=== PATIENT | female | born 1975 | race Caucasian/White ===

== ENCOUNTER → 2017-11-21 08:55 | Outpatient (CLI) | payer OTHER, BC, SELFPAY ==
--- NOTE | 2017-11-21 08:59 | MM_ITS ---
MM Dig screening mamm BI w/CAD CAD Screening COMPARISON: Digital mammograms 09/18/2016 and 02/24/2015 INDICATION: There is a history of breast cancer patient maternal grandmother. TECHNIQUE: Standard CC and MLO images were obtained. R2 CAD reviewed. FINDINGS: Moderate diffuse fibroglandular densities are seen throughout both breast and the findings are bilateral and symmetrical. There is no suspicious lesion and there are no suspicious microcalcifications. IMPRESSION: Stable exam no suspicious lesion seen recommend yearly follow-up BI-RADS Category: 1 Negative RECOMMENDED FOLLOW-UP: 1YR - 1 YEAR FOLLOW-UP (A letter has been sent to the patient regarding results of the study.)
[2017-11-21 11:03] LABS: Basophils # 0.1 K/mm3 (0-0.2); Basophils % 0.9 % (0.1-2.0); Eosinophils # 0.3 K/mm3 (0.0-0.4); Eosinophils % 3.6 % (0.1-12.0); Hematocrit 40.6 % (37.0-47.0); Hemoglobin 14.1 g/dL (12.2-16.2); Lymphocytes # 1.9 K/mm3 (0.7-4.5); Lymphocytes % 27.3 K/mm3 (10-50); Mean Corpuscular HGB Conc 34.7 g/dL (31.8-35.4); Mean Corpuscular Hemoglobin 30.7 pg (27.0-31.2); Mean Corpuscular Volume 88.5 fl (81-99); Mean Platelet Volume 8.5 fl (7.4-10.4); Monocytes # 0.3 K/mm3 (0.1-1.0); Monocytes % 4.1 % (1.7-9.3); Neutrophils # 4.6 K/mm3 (1.8-7.8); Neutrophils % 64.1 % (37.0-80.0); Platelet Count 186 K/mm3 (142-424); Red Blood Count 4.59 M/mm3 (4.20-5.40); Red Cell Distribution Width 12.9 % (11.5-17.5); White Blood Count 7.1 K/mm3 (4.8-10.8)
[2017-11-21 12:26] LABS: Alanine Aminotransferase 22 U/L (12-78); Albumin Level 3.9 gm/dL (3.4-5.0); Albumin/Globulin Ratio 1.3 (1.1-1.8); Alkaline Phosphatase 61 U/L (46-116); Anion Gap 13.5 mEq/L (5-15); Aspartate Amino Transferase 22 U/L (15-37); Bilirubin,Total 0.4 mg/dL (0.2-1.0); Blood Urea Nitrogen 13 mg/dL (7-18); Calcium 8.7 mg/dL (8.5-10.1); Carbon Dioxide 27 mmol/L (21.0-32.0); Chloride 105 mmol/L (98-107); Chol/HDL Ratio 6.1 (1-3.5); Cholesterol 176 mg/dL (140-200); Estimated Glomerular Filt Rate 92 ml/min (>60); GFR (African American) 111 ML/MIN (>60); Glucose 82 mg/dL (74-106); HDL Cholesterol 29 mg/dL (29-89); LDL Cholesterol 101 mg/dL (0-130); Potassium 4.5 mmoL/L (3.5-5.1); Sodium 141 mmol/L (136-145); Total Protein,Serum 6.9 gm/dL (6.4-8.2); Triglycerides 231 mg/dL (30-200); VLDL Cholesterol 46 mg/dL (0-40)
== END ==
PROVIDERS: PCP Internal Medicine Adolescent Medicine; Visit Provider Nurse Practitioner Obstetrics & Gynecology
DX: Z12.31 Encounter for screening mammogram for malignant neoplasm of breast (principal)
CPT/HCPCS: 36415; 77067; 80053; 80061; 82652; 85025

== ENCOUNTER → 2019-01-28 10:54 | Outpatient (CLI) | payer BC, SELFPAY ==
--- NOTE | 2019-01-28 10:56 | MM_ITS ---
MM Dig screening mamm BI w/CAD ORDERING PHYSICIAN : Dale Anderson MD PATIENT AGE: 43 years GENDER: Female COMPARISON: February INDICATION: : Routine Screening Mammogram no hormones no new complaints Family history: maternal great grandmother with breast cancer TECHNIQUE: Standard CC and MLO images were obtained. R2 CAD reviewed. Similar parenchymal pattern and distribution. No dominant or suspicious mass. No suspicious calcifications. Mild asymmetry FINDINGS: Mild to moderate fibroglandular elements most evident throughout the upper-outer quadrant bilateral RIGHT BREAST:No new areas of concern. Stable right mammogram LEFT BREAST:No new areas of significant concern. Mild asymmetry with small focal area of fibroglandular density at the medial breast has been seen on previous studies ...... IMPRESSION: ...... No new findings of significant concern. Adequately stable mammogram. Bilateral follow-up one year recommended and encouraged BI-RADS Category: 2 Benign Finding(s) RECOMMENDED FOLLOW-UP: 1YR 1 YEAR FOLLOW-UP (A letter has been sent to the patient regarding results of the study.)
== END ==
PROVIDERS: PCP Internal Medicine Adolescent Medicine; Visit Provider Nurse Practitioner Obstetrics & Gynecology
DX: Z12.31 Encounter for screening mammogram for malignant neoplasm of breast (principal)
CPT/HCPCS: 77067

== ENCOUNTER → 2021-07-22 08:35 | Outpatient (CLI) | payer OTHER, SELFPAY | PROVIDERS: PCP Internal Medicine Adolescent Medicine; Visit Provider Nurse Practitioner | DX: U07.1 COVID-19 (principal) | CPT/HCPCS: C9803; U0003; U0005 ==

== ENCOUNTER 2024-11-21 08:31 | Outpatient (CLI) | payer BC, SELFPAY ==
--- NOTE | 2024-11-21 08:30 | MM_ITS ---
PROCEDURE INFORMATION: Exam: MG Bilateral Screening 3D Mammography Exam date and time: 11/21/2024 8:41 AM Age: 49 years old Clinical indication: Screening examination. TECHNIQUE: Imaging protocol: Bilateral Screening tomosynthesis and 2D mammography including computer-aided detection (CAD) when performed. COMPARISON: 1. MG DIG MAMM-SCREEN [facility] 01/28/2019 11:21 AM 2. MG SCBI MM Dig screening mamm BI w/CAD 11/21/2017 9:06 AM FINDINGS: MAMMOGRAPHY: Breast composition: There are scattered areas of fibroglandular density. Mass: None. Architectural distortion: None. Calcifications: No suspicious calcifications. Asymmetric density: None. Skin thickening: None. Axillary adenopathy: None. IMPRESSION: No mammographic evidence of malignancy. Annual screening is recommended unless otherwise clinically indicated. ASSESSMENT: BI-RADS Category 1: Negative.
--- OUTSIDE RECORDS SUMMARY | 2024-11-21 08:33 | XMS_ITS | Data Portability ---
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 Plan of Treatment Reminders Order Date Submit Date Provider Last Modified By Organization Details Last Modified Time Details Appointments None recorded. Lab bun (blood urea nitrogen), serum or plasma 2023 024 [facility] (Centralized Scheduling), [address] [place], [address], 4 16:14:40 creatinine , serum or plasma 2023 024 [facility] (Centralized Scheduling), [address] [place], [address], 4 16:14:40 hormone panel, serum or plasma 2022 023 [email or web address], [address], [address], [place], [address], 3 09:55:14 CBC w/ auto diff 2022 023 [email or web address] [facility], [address], [address], [place], [address], 3 09:55:14 CMP, serum or plasma 2022 023 [email or web address] [facility], [address], [address], [place], [address], 3 09:55:14 lipid panel, serum 2022 023 [place] [address] [facility], [address], [address], [place], [address], 3 09:55:14 unlisted lab - TSH reflex to t4f 2022 023 [place] [address] [facility], [address], [address], [place], [address], 3 09:55:14 Referral None recorded. Procedures None recorded. Surgeries None recorded. Imaging electrocar diogram 2023 024 [facility], [address], [place], [address], 4 13:57:15 MRI, brain, w/wo contrast 2023 024 [facility] (Centralized Scheduling), [address], [place], [address], 4 16:15:19 Medication Orders None recorded. Patient TargetsNo targets recorded. Patient Instructions Encounter Date Encounter Id Patient Instructions Last Modified By Organization Details Last Modified Time 04/16/2023 [id number] Will RTC for lab s to R/O anemia, diabetes, electrolyte disturbance, thyroid disease or perimenopause. If labs are all unremarkable, would consider referral to ENT for further eval with subsequent referal to Neuro if warranted due to persistent H/A's. [email or web address] Not available 04/16/2023 15:03:20 Reason for Referral None Reported. Results Created Date Observation Date Name Description Value Unit Range Abnormal Flag Note LastModifiedBy Organization Detail LastModifiedTime 04/20/20 23 04/21/2023 FSH+T ESTT+ LH+KY OG+ES TROGE N testosterone 39 NG/dL 4-50 Not Available [facility] ([facility]) [address] [place], [address], 04/25/2023 06:16:20 04/20/2004/21/2023 FSH+T ESTT+ LH+KY OG+ES TROGE N LH 23.9 mIU/m L Adult Femal e: Folli cular phase 2.4 - 12.6 Ovula tion phase 14.0 - 95.6 Lutea l phase 1.0 - 11.4 Postm enopa usal 7.7 - 58.5 Not Available [facility] ([facility]) [address] [place], [address], 04/25/2023 06:16:20 04/20/2004/21/2023 FSH+T ESTT+ LH+KY OG+ES TROGE N FSH 35.0 mIU/m L Adult Femal e: Folli cular phase 3.5 - 12.5 Ovula tion phase 4.7 - 21.5 Lutea l phase 1.7 - 7.7 Postm enopa usal 25.8 - 134.8 Not Available [facility] ([facility]) [address] [place], [address], 04/25/2023 06:16:20 04/20/2004/21/2023 FSH+T ESTT+ LH+KY OG+ES TROGE N progesterone 0.2 NG/mL Folli cular phase 0.1 - 0.9 Lutea l phase 1.8 - 23.9 Ovula tion phase 0.1 - 12.0 Pregn ant First trime ster 11.0 - 44.3 Secon d trime ster 25.4 - 83.3 Third trime ster 58.7 - 214.0 Postm enopa usal 0.0 - 0.1 Not Available [facility] ([facility]) [address] [place], [address], 04/25/2023 06:16:20 04/20/2004/25/2023 FSH+T ESTT+ LH+KY OG+ES TROGE N estrogens, total 57 pg/mL Prepu berhane l < 40 Femal e Cycle : 1-10 Days 16 - 328 11-20 Days 34 - 501 21-30 Days 48 - 350 Post- Menop ausal 40 - 244 Not Available [facility] ([facility]) [address] [facility], [place], [address], 04/25/2023 06:16:20 04/20/2004/21/2023 CBC WITH DIFFE RENTI AL/PL ATELE T WBC 6.7 x10e3 /uL 3.4-10 .8 Not Available [facility] ([facility]) [address] [place], [address], 04/25/2023 06:16:21 04/20/2004/21/2023 CBC WITH DIFFE RENTI AL/PL ATELE T RBC 4.69 x10e6 /uL 3.77-5 .28 Not Available [facility] ([facility]) [address] [facility], [place], [address], 04/25/2023 06:16:21 04/20/2004/21/2023 CBC WITH DIFFE RENTI AL/PL ATELE T hemoglobin 13.6 g/dL 11.1-1 5.9 Not Available [facility] ([facility]) [address] [place], [address], 04/25/2023 06:16:21 04/20/2004/21/2023 CBC WITH DIFFE RENTI AL/PL ATELE T hematocrit 41.6 % 34.0-4 6.6 Not Available [facility] ([facility]) [address] [place], [address], 04/25/2023 06:16:21 04/20/2004/21/2023 CBC WITH DIFFE RENTI AL/PL ATELE T MCV 89 fL 79-97 Not Available [facility] ([facility]) [address] [place], [address], 04/25/2023 06:16:21 04/20/2004/21/2023 CBC WITH DIFFE RENTI AL/PL ATELE T MCH 29.0 pg 26.6-3 3.0 Not Available [facility] ([facility]) [address] [facility], [place], [address], 04/25/2023 06:16:21 04/20/2004/21/2023 CBC WITH DIFFE RENTI AL/PL ATELE T MCHC 32.7 g/dL 31.5-3 5.7 Not Available [facility] ([facility]) [address] [facility], [place], [address], 04/25/2023 06:16:21 04/20/2004/21/2023 CBC WITH DIFFE RENTI AL/PL ATELE T RDW 12.8 % 11.7-1 5.4 Not Available [facility] ([facility]) [address] [facility], [place], [address], 04/25/2023 06:16:21 04/20/2004/21/2023 CBC WITH DIFFE RENTI AL/PL ATELE T platelets 221 x10e3 /uL 150-45 0 Not Available [facility] ([facility]) [address] [facility], [place], [address], 04/25/2023 06:16:21 04/20/2004/21/2023 CBC WITH DIFFE RENTI AL/PL ATELE T neutrophils 61 % not estab. Not Available [facility] ([facility]) [address] [facility], [place], [address], 04/25/2023 06:16:21 04/20/2004/21/2023 CBC WITH DIFFE RENTI AL/PL ATELE T lymphs 29 % not estab. Not Available [facility] ([facility]) [address] [place], [address], 04/25/2023 06:16:21 04/20/2004/21/2023 CBC WITH DIFFE RENTI AL/PL ATELE T monocytes 6 % not estab. Not Available [facility] ([facility]) [address] [facility], [place], [address], 04/25/2023 06:16:21 04/20/2004/21/2023 CBC WITH DIFFE RENTI AL/PL ATELE T eos 3 % not estab. Not Available [facility] ([facility]) [address] [facility], [place], [address], 04/25/2023 06:16:21 04/20/2004/21/2023 CBC WITH DIFFE RENTI AL/PL ATELE T basos 1 % not estab. Not Available [facility] ([facility]) [address] [facility], [place], [address], 04/25/2023 06:16:21 04/20/2004/21/2023 CBC WITH DIFFE RENTI AL/PL ATELE T immature cells LANGUAGE ASSISTANT Not Available [facility] ([facility]) [address] [place], [address], 04/25/2023 06:16:21 04/20/2004/21/2023 CBC WITH DIFFE RENTI AL/PL ATELE T neutrophils (absolute) 4.1 x10e3 /uL 1.4-7. 0 Not Available [facility] ([facility]) [address] [place], [address], 04/25/2023 06:16:21 04/20/2004/21/2023 CBC WITH DIFFE RENTI AL/PL ATELE T lymphs (absolute) 2.0 x10e3 /uL 0.7-3. 1 Not Available [facility] ([facility]) [address] [place], [address], 04/25/2023 06:16:21 04/20/2004/21/2023 CBC WITH DIFFE RENTI AL/PL ATELE T monocytes(ab solute) 0.4 x10e3 /uL 0.1-0. 9 Not Available [facility] ([facility]) [address] [facility], [place], [address], 04/25/2023 06:16:21 04/20/2004/21/2023 CBC WITH DIFFE RENTI AL/PL ATELE T eos (absolute) 0.2 x10e3 /uL 0.0-0. 4 Not Available [facility] ([facility]) [address] [facility], [place], [address], 04/25/2023 06:16:21 04/20/2004/21/2023 CBC WITH DIFFE RENTI AL/PL ATELE T baso (absolute) 0.1 x10e3 /uL 0.0-0. 2 Not Available [facility] ([facility]) [address] [facility], [place], [address], 04/25/2023 06:16:21 04/20/2004/21/2023 CBC WITH DIFFE RENTI AL/PL ATELE T immature granulocytes 0 % not estab. Not Available [facility] ([facility]) [address] [facility], [place], [address], 04/25/2023 06:16:21 04/20/2004/21/2023 CBC WITH DIFFE RENTI AL/PL ATELE T immature grans (abs) 0.0 x10e3 /uL 0.0-0. 1 Not Available [facility] ([facility]) [address] [facility], [place], [address], 04/25/2023 06:16:21 04/20/2004/21/2023 CBC WITH DIFFE RENTI AL/PL ATELE T NRBC LANGUAGE ASSISTANT Not Available [facility] ([facility]) [address] [facility], [place], [address], 04/25/2023 06:16:21 04/20/2004/21/2023 CBC WITH DIFFE RENTI AL/PL JORGE LUIS T hematology comments: LANGUAGE ASSISTANT Not Available [facility] ([facility]) [address] [facility], [place], [address], 04/25/2023 06:16:21 04/20/20 23 04/21/2023 COMP. METAB OLIC PANEL (14) glucose 82 mg/dL 70-99 Not Available [facility] ([facility]) [address] [place], [address], 04/25/2023 06:16:22 04/20/20 23 04/21/2023 COMP. METAB OLIC PANEL (14) BUN 13 mg/dL 6-24 Not Available [facility] ([facility]) [address] [place], [address], 04/25/2023 06:16:22 04/20/20 23 04/21/2023 COMP. METAB OLIC PANEL (14) creatinine 0.80 mg/dL 0.57-1 .00 Not Available [facility] ([facility]) [address] [place], [address], 04/25/2023 06:16:22 04/20/20 23 04/21/2023 COMP. METAB OLIC PANEL (14) eGFR 91 mL/mi n/1.7 3 >59 Not Available [facility] ([facility]) [address] [place], [address], 04/25/2023 06:16:22 04/20/20 23 04/21/2023 COMP. METAB OLIC PANEL (14) BUN/creatini ne ratio 16 9-23 Not Available [facility] ([facility]) [address] [place], [address], 04/25/2023 06:16:22 04/20/20 23 04/21/2023 COMP. METAB OLIC PANEL (14) sodium 140 mmol/ L 134-14 4 Not Available [facility] ([facility]) [address] [place], [address], 04/25/2023 06:16:22 04/20/20 23 04/21/2023 COMP. METAB OLIC PANEL (14) potassium 4.8 mmol/ L 3.5-5. 2 Not Available [facility] ([facility]) [address] [place], [address], 04/25/2023 06:16:22 04/20/20 23 04/21/2023 COMP. METAB OLIC PANEL (14) chloride 100 mmol/ L 96-106 Not Available [facility] ([facility]) [address] [place], [address], 04/25/2023 06:16:22 04/20/20 23 04/21/2023 COMP. METAB OLIC PANEL (14) carbon dioxide, total 24 mmol/ L 20-29 Not Available [facility] ([facility]) [address] [place], [address], 04/25/2023 06:16:22 04/20/20 23 04/21/2023 COMP. METAB OLIC PANEL (14) calcium 9.4 mg/dL 8.7-10 .2 Not Available [facility] ([facility]) [address] [place], [address], 04/25/2023 06:16:22 04/20/20 23 04/21/2023 COMP. METAB OLIC PANEL (14) protein, total 7.1 g/dL 6.0-8. 5 Not Available [facility] ([facility]) [address] [place], [address], 04/25/2023 06:16:22 04/20/20 23 04/21/2023 COMP. METAB OLIC PANEL (14) albumin 4.6 g/dL 3.9-4. 9 Not Available [facility] ([facility]) [address] [place], [address], 04/25/2023 06:16:22 04/20/20 23 04/21/2023 COMP. METAB OLIC PANEL (14) globulin, total 2.5 g/dL 1.5-4. 5 Not Available [facility] ([facility]) [address] [place], [address], 04/25/2023 06:16:22 04/20/20 23 04/21/2023 COMP. METAB OLIC PANEL (14) A/G ratio 1.8 1.2-2. 2 Not Available [facility] ([facility]) [address] [place], [address], 04/25/2023 06:16:22 04/20/20 23 04/21/2023 COMP. METAB OLIC PANEL (14) bilirubin, total 0.5 mg/dL 0.0-1. 2 Not Available [facility] ([facility]) [address] [place], [address], 04/25/2023 06:16:22 04/20/20 23 04/21/2023 COMP. METAB OLIC PANEL (14) alkaline phosphatase 69 IU/L 44-121 Not Available [facility] ([facility]) [address] [place], [address], 04/25/2023 06:16:22 04/20/20 23 04/21/2023 COMP. METAB OLIC PANEL (14) AST (SGOT) 16 IU/L 0-40 Not Available [facility] ([facility]) [address] [place], [address], 04/25/2023 06:16:22 04/20/20 23 04/21/2023 COMP. METAB OLIC PANEL (14) ALT (SGPT) 12 IU/L 0-32 Not Available [facility] ([facility]) [address] [place], [address], 04/25/2023 06:16:22 04/20/20 23 04/21/2023 LIPID PANEL cholesterol, total 186 mg/dL 100-19 9 Not Available [facility] ([facility]) [address] [place], [address], 04/25/2023 06:16:23 04/20/2004/21/2023 LIPID PANEL triglyceride s 297 mg/dL 0-149 above high normal Not Available [facility] ([facility]) [address] [place], [address], 04/25/2023 06:16:23 04/20/2004/21/2023 LIPID PANEL HDL cholesterol 32 mg/dL >39 below low normal Not Available [facility] ([facility]) [address] [place], [address], 04/25/2023 06:16:23 04/20/2004/21/2023 LIPID PANEL VLDL cholesterol zane 51 mg/dL 5-40 above high normal Not Available [facility] ([facility]) [address] [place], [address], 04/25/2023 06:16:23 04/20/2004/21/2023 LIPID PANEL LDL chol calc ([facility]) 103 mg/dL 0-99 above high normal Not Available [facility] ([facility]) [address] [place], [address], 04/25/2023 06:16:23 04/20/2004/21/2023 LIPID PANEL comment: LANGUAGE ASSISTANT Not Available [facility] ([facility]) [address] [place], [address], 04/25/2023 06:16:23 04/20/2004/21/2023 TSH REFLE X TO T4F TSH 2.540 uIU/m L 0.450- 4.500 Not Available [facility] ([facility]) [address] [place], [address], 04/25/2023 06:16:24 07/23/19 24 07/25/2023 elect rocar diogr am No observ ation record ed. [facility] [address], [place], [address], 07/27/2023 12:29:14 07/24/19 24 07/23/2023 elect rocar diogr am No observ ation record ed. [facility] [address], [place], [address], 07/24/2023 13:57:15 Result Notes None recorded. Problems Name Problem SNOMED Code Status Onset Date Resolution Date Notes Provider Name and Address Organization Details Recorded Time Dizzy spells 136639052 Active 024 Val sanchez [place] - [facility] & [place] 15:36:44 Dizziness 306284207 Active 024 Tatyana Maria DO [address] [facility], [place], [address] , [place] - [facility] - [place] & [place] 16:03:20 Problem Notes None recorded. Procedures Surgical History Date Name Laterality Status Provider Name and Address Organization Details Recorded Time delivery completed Wendysoo De Leon [place] [facility] & [place] 04/16/2023 13:41:32 delivery completed Wendysoo De Leon [place] - [facility] - [place] & [place] 04/16/2023 13:41:48 delivery completed Wendysoo De [place] [facility] & [place] 04/16/2023 13:42:03 tonsillectomy and adenoidectomy completed Val Catherine [place] [facility] & [place] 07/18/2023 15:39:54 Imaging Results Imaging Date Name Status LastModified by Organization Details LastModified Time 07/25/2023 electrocardiogram completed [facility] [address], [place], [address], 07/27/2023 12:29:14 07/23/2023 electrocardiogram completed [facility] [address], [place], [address], 07/24/2023 13:57:15 Procedure Notes None recorded. Medical Equipment None Reported. Allergies No known drug allergies Medications Name Sig Start Date Stop Date Status Note LastModified by Organization Details LastModified Time fluconazole 150 mg tablet TAKE 1 TABLET BY MOUTH EVERY 3 DAYS 04/16 completed Not Available Not Available Not Available cephalexin 500 mg capsule TAKE 1 CAPSULE BY MOUTH THREE TIMES DAILY 04/16 completed Not Available Not Available Not Available erythromyci n 5 mg/gram (0.5 %) eye ointment APPLY OINTMENT IN BOTH EYES 4 TIMES DAILY UNTIL HEALED 04/16 completed Not Available Not Available Not Available epinastine 0.05 % eye drops INSTILL 1 DROP INTO EACH EYE TWICE DAILY NEEDED 04/16 completed Not Available Not Available Not Available Vitals Date Recorded Body height Body mass index (BMI) Body weight Body temperature Oxygen saturation Oxygen saturation in Arterial blood by Pulse oximetry Heart rate Oxygen saturation Oxygen saturation in Arterial blood by Pulse oximetry Oxygen saturation Oxygen saturation in Arterial blood by Pulse oximetry Oxygen saturation Oxygen saturation in Arterial blood by Pulse oximetry Heart rate Heart rate Heart rate Systolic blood pressure Diastolic blood pressure Systolic blood pressure Diastolic blood pressure Systolic blood pressure Diastolic blood pressure Systolic blood pressure Diastolic blood pressure Provider Name and Address Organization Details Last Updated DateTime 3 162.56 cm 33 kg/m2 38433.5 4 g 98.7 [degF] 98 % 98 % 72 /min 97 % 97 % 98 % 98 % 98 % 98 % 76 /min 77 /min 80 /min 132 mm[Hg] 76 mm[Hg] 116 mm[Hg] 82 mm[Hg] 122 mm[Hg] 82 mm[Hg] 124 mm[Hg] 90 mm[Hg] Helen De Leon [facility] - [place] & [place] 3 14:27:59 Date Recorded Body height Body mass index (BMI) Body weight Heart rate Oxygen saturation Oxygen saturation in Arterial blood by Pulse oximetry Systolic blood pressure Diastolic blood pressure Provider Name and Address Organization Details Last Updated DateTime 4 162.56 cm 34.3 kg/m2 62944.4 7 g 82 /min 98 % 98 % 122 mm[Hg] 70 mm[Hg] Val NAVARRETE [facility] & [place] 4 15:34:28 Date Recorded Body height Body mass index (BMI) Body weight Oxygen saturation Oxygen saturation in Arterial blood by Pulse oximetry Heart rate Systolic blood pressure Diastolic blood pressure Provider Name and Address Organization Details Last Updated DateTime 4 162.56 cm 34.3 kg/m2 05703.4 7 g 98 % 98 % 80 /min 126 mm[Hg] 82 mm[Hg] Stacy [place] [facility] & [place] 4 14:42:15 Date Recorded Body height Body mass index (BMI) Body weight Body temperature Oxygen saturation Oxygen saturation in Arterial blood by Pulse oximetry Heart rate Systolic blood pressure Diastolic blood pressure Provider Name and Address Organization Details Last Updated DateTime 5 162.56 cm 34.4 kg/m2 31306.6 3 g 97.7 [degF] 95 % 95 % 88 /min 124 mm[Hg] 88 mm[Hg] Helena Etienne [facility] & [place] 5 15:03:57 Social History Question Answer Notes LastModified by Reelationizat ion Details LastModified Time Tobacco Smoking Status Former [facility] [place] 07/18/2023 15:38:27 What Is Your Level Of Caffeine Consumption? Occasional [email or web address] Information not available 07/23/2023 When Did You Quit Smoking? 1-5yearssince lastcigarette [email or web address] Information not available 07/23/2023 How Many Children Do You Have? 3 [email or web address] Information not available 07/23/2023 What Is Your Relationship Status? Lives In A House With And Children [email or web address] Information not available 07/23/2023 Are You Sexually Active? Yes [email or web address] Information not available 07/23/2023 How Much Tobacco Do You Smoke? 0.5 PPD Information not available 07/18/2023 Sex: Female Functional Status Question Answer Note LastModified by Organizat ion Details LastModified Time Do you use any illicit or recreational drugs? No Information not available 07/18/2023 What is your level of alcohol consumption? Occasional rare Information not available 07/18/2023 Are you currently employed? 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 Family History Relationship Description Onset Age of this Age Resolved Age Notes LastModified by Organization Details LastModified Time Mother Headache pt. added direct ly (04/16) [email or web address] Not available 04/16/2023 13:13:35 Mother Cerebrovascu lar accident pt. added direct ly (04/16) [email or web address] Not available 04/16/2023 13:14:11 Mother Disorder of endocrine system pt. added direct ly (04/16) [email or web address] Not available 04/16/2023 13:14:23 Mother Rheumatoid arthritis pt. added direct ly (04/16) [email or web address] Not available 04/16/2023 13:14:39 Father Chronic obstructive pulmonary disease pt. added direct ly (04/16) [email or web address] Not available 04/16/2023 13:13:42 Medical History Condition Response Anemia Y Vision or Eye Problems Y Head Injury/Concussion Y Gynecological HistoryNo gynecological history recorded. Obstetrics History GPAL:G 0 P 0 0 0 0 Immunizations Vaccine Type Date Status Note Provider Nam e and Address Organization Details Recorded Time COVID-19, mRNA, LNP-S, PF, 30 mcg/0.3 mL dose 01/07/2021 completed Helen sanchez [place] - [facility] - [place] & [place] 04/16/2023 14:29:02 COVID-19, mRNA, LNP-S, PF, 30 mcg/0.3 mL dose 02/03/2021 completed Helen sanchez, [place] - [facility] - [place] & [place] 04/16/2023 14:29:02 Past Encounters Encounter ID Performer Location Encounter Start Date Encounter Closed Date Diagnosis/Indication Diagnosis SNOMED-CT Code Diagnosis ICD10 Code Diagnosis Note [id number] Yossi Galvan MD [address],[facility] [address] [place] [address] 04/16/2023 13:07:01 04/16/2023 14:57:39 Dizziness 231306050 R42 RTC on Fri for labs. Perimenopausal state 088 [id number] 13748 Z78.0 RTC on Fri for labs to R/O perimenopa use [id number] Tatyana DO JAZLYN Maria [facility] [address] [facility],[address] [place] [address] 07/18/2023 15:14:10 07/18/2023 16:05:07 Dizziness 440722293 R42 New onset dizziness provoked by changing position. It came on suddenly and has persisted. She has had an ENT workup including VNG which was negative. Due to persistent symptoms would recommend a MRI brain to rule out any structural process.Sh talia is also given home exercises she can try to see if any positive effect on her dizziness. [id number] Eric Wang MD [facility] [address] [facility] [address] [place] [address] 07/23/2023 14:11:50 07/23/2023 15:12:09 Dizziness 524770094 R42 By patient's history this does not appear to be cardiac in etiology. Her symptoms seem to be positional with change in head positions especially when recumbent in bed.She has had orthostati c vitals which have been normal.Her blood pressure is fine today. For now from a cardiac perspectiv e would clinically monitor with no immediate workup warranted. If she has persistent symptoms with no other etiology then can consider Holter monitor and further evaluation [id number] Yossi Galvan MD [facility] [address] [place] [address] 07/17/2024 14:55:33 07/17/2024 15:31:36 Sprain of left ankle [id number] S93.402A Likely grade 1/2 as she is able to bear weight though it is painful. It does make her alter her gait. Given that she has only minor swelling and no ecchymosis with only mild to moderate tenderness to palpation I do not believe an x-ray is warranted at this time. She is in agreement. Her job is mostly sitting so I have recommende d that she try to keep her left leg elevated if possible. She has been using over-the-c ounter Aleve. I have told her to double those up so she is getting 440 mg b.i.d. and to ice ankle 2 to 3 times a day if possible. She is currently wearing a brace which she should continue to wear and gradually return to weight-kodak ring a little bit more each day. Follow up as needed Health Concerns Section Related Observation LastModified by Organization Detai ls LastModified Time None Recorded Concern Status LastModified by Organization Details LastModified Time None Recorded Advance Directives Directive None Recorded Payers Insurance Date Sequence Insurance Name Policy Number Policy Mills Covered Member ID Mills Member ID Guarantor Name 07/16/2024 1 [place] [id number] Joseph T Workman [id number] Joseph Workman 04/16/2023 2 [place] [id number] Joseph T Workman [id number] Joseph Workman Notes Date Note Type Note Provider Name and Address Organization Details Recorded Time 04/16/2023 text/html 48 yo WF present s to establish care. Has not really had a PCP. Is on no meds. Surgical hx of 3 C/S's and T&A. Former smoker (10 year hx-quit in 2019). Rare alcohol. Has recently had some bouts of dizziness since last Th, 4 days ago.States she has sys like she is in a fog , or a swimmy sensation if she stands, when she first lies down, if she moves her head to look upward or a quick turn of her head. Sys might last as long as a min or as short as 5 sec. Has had some recent sweats during the day. Reports of moodiness from family. NO recent illnesses. No change of life circumstances. Has had some palpatations but not new. ALso some occ chest tightness that is quickly resolving. ALso has H/A's 3 times weekly for over a year. Sometimes they respond quickly to a Goody powder, others will persist even remaining there the next morning. Non have been debilitating to the point where she has missed work. Yossi Galvan MD [address], [place], [address], [facility] - [place] & [place] 04/16/2023 17:34:27 07/18/2023 text/html 48 y/o right guaamn ded female here for neurologic consultation requested by Dr Boyle regarding dizziness. Naseem is the primary historian for today's visit. Naseem reports having dizzy spells that are triggered by moving or when lying down. She woke up one morning in April. As soon as she sat up she felt herself pitch to the right. She felt as if everything was moving. She managed to get up and ready for her day but the dizziness would come and go throughout the day. She felt any time she changed position of her head she would get very dizzy. She recalls that she had trouble walking due to the dizziness. That first day it went on all day and then gradually got to be less intense in the last couple of months but has never gone away. It now is primarily when she lays down at night she feels everything is moving rapidly. It can last 5 seconds and then subsides. When she wakes up in the morning she again will get the same sensation for 5 seconds and then it resolves. She has to be cautious how she gets out of bed knowing she will be dizzy. She denies any hearing changes. She has history of migraines but these have actually been much better in the last six months. She was evaluated by ENT. VNG was normal. No home exercises or therapies have been recommended. Tatyana Maria DO [address] , [place], [address], [facility] - [place] & [place] 07/18/2023 16:13:35 07/23/2023 text/html 48-year-old fema le here for evaluation of dizzinessRefer : Dr Boyle Her symptoms started 04/2023- woke up and was standing up , felt dizzy . Her dizziness is positional. No presyncope ,syncope , palpitations.She felt dizzy on looking up.She feels dizzy on moving position from left to right in bedShe was seen by ENT and referred to us for further evaluation.No prior cardiac history. No other cardiac complaints denies any chest pain shortness of breath PND orthopnea palpitations syncope EKG 07/23/2023: NSR 76 ,[place] 176, QRS 70, QTC 432 Eric Wang MD [address], [place], [address], [facility] & [place] 07/24/2023 11:08:14 07/17/2024 text/html 49 yo WF present s c/o left ankle pain x 2 days. Tripped on a dog toy injuring left ankle. Has been weight-bearing. Has noticed swelling but no bruising. Yossi Galvan MD [address], [place], [address], [facility] - [place] [facility] & [place] 07/18/2024 07:45:42 OBGyn Episode No OBEpisode recorded.
== END 2024-11-21 23:59 | disposition home or self-care (01) ==
LOC: RAD 08:32
PROVIDERS: PCP Family Medicine; Visit Provider Nurse Practitioner Obstetrics & Gynecology
DX: Z12.39 Encounter for other screening for malignant neoplasm of breast (principal)
CPT/HCPCS: 77063; 77067

== ENCOUNTER 2025-02-04 16:45 | Outpatient (CLI) | payer BC, SELFPAY ==
--- OUTSIDE RECORDS SUMMARY | 2025-02-04 16:47 | XMS_ITS | Clinical Summary ---
Author Organization [facility] Address [address] [place] [phone] Phone [email or web address] Care Team Providers Care Bar Manager Name Role Phone See Shavon Primary Care Provider [phone] Allergies No known active allergies Medications No known medications Active Problems No known active problems Social History Tobacco Use Types Packs/Day Years Used Date Smoking Tobacco: Every Day Cigarettes Last attempted to quit: 07/07/2019 E-Cigarettes Smokeless Tobacco: Never Intimate Partner Violence Answer Date R ecorded Insults You Not on file 10/22/2020 Threatens You Not on file 10/22/2020 Screams at You Not on file 10/22/2020 Physically Hurt Not on file 10/22/2020 Intimate Partner Violence Score Not on file 10/22/2020 Depression Answer Date Recorded PHQ Total Score Not on file 02/05/2021 Stress Answer Date Recorded Stress in your Life Not on file 05/14/2024 Dealing with Stress 3 05/14/2024 Comments Unknown Sex and Gender Information Value Date Recorded Sex Assigned at Not on file Legal Sex Female 11:14 AM CDT Gender Identity Not on file Sexual Orientation Not on file Last Filed Vital Signs Vital Sign Reading Time Taken Comments Blood Pressure 138/98 02/04/2020 6:45 PM EDT Pulse 90 02/12/2020 10:47 AM EDT Temperature 36.9 C (98.4 F) 02/12/2020 10:47 AM EDT Respiratory Rate 20 02/04/2020 6:45 PM EDT Oxygen Saturation 93% 02/12/2020 10:47 AM EDT Inhaled Oxygen Concentration - - Weight 83.2 kg (183 lb 6.4 oz) 09/09/2019 9:03 P M EST Height 165.1 cm (5' 5 ) 09/09/2019 9:03 PM EST Body Mass Index 30.52 09/09/2019 9:03 PM EST Plan of Treatment Health Maintenance Due Date Last Done Comments Dental Cleaning/Exam 1975 HIV Screening 1975 Hepatitis C Screening 1975 Cervical Cancer Screening 1991 Hep B Infection Screening - Triple Screen 1993 Hepatitis B Immunization (1 of 3 - 19+ 3-dose series) 1994 Pneumococcal: Ped (0 to 5 Yr s) and At-Risk Member (6 to 64 Yrs) (1 of 2 - PCV) 1994 Tetanus Diphtheria and Pertu ssis Immunization (1 - Tdap) 1994 Breast Cancer Screening 2005 Colorectal Cancer Screening 2005 Annual Preventive Exam 05/09/2020 05/09/2019 Asthma Spirometry 05/09/2021 05/09/2019 Covid-19 Immunization (1 - 2 season) 2024 Influenza Immunization (#1) 2025 HIB Immunization Aged Out No longer e ligible based on patient's age to complete this topic HPV Immunization Aged Out No longer e ligible based on patient's age to complete this topic Hepatitis A Immunization Aged Out No longer eligible based on patient's age to complete this topic Polio Immunization Aged Out No longer eligible based on patient's age to complete this topic Procedures Procedure Name Priority Date/Time Associated Diagnosis Comments SPIROMETRY WITHOUT BRONCHODILATOR Routine 05/09/2019 9:22 AM EDT Encounter for pre-employment health screening examination from Last 3 Months or Most Recently Relevant to Health Maintenance Results * Spirometry, Complete (05/09/2019 9:22 AM EDT) FEV1 2.99 liters Comment:99 FVC 3.48 liters Comment:92 FEV1/FVC 96 % Comment:118 Carmen SIFUENTES PFT ORDERABLES Final Re sult from Last 3 Months or Most Recently Relevant to Health Maintenance Care Teams Bar Manager Relationship Specialty Start Date End Date Shavon Cui [address] [place] [address] PCP - General Donation Worker 09/09/19
--- OUTSIDE RECORDS SUMMARY | 2025-02-04 16:47 | XMS_ITS | Clinical Summary ---
Author Organization [facility] Address [address] [place] [address] Care Team Providers Care Supervisor [employer] Name Role Phone Unavailable Primary Care Provider Unavailabl e Allergies No known active allergies Medications No known medications Active Problems No known active problems Immunizations Immunization Administration Dates Next Due TD (adult), 2 Lf tetanus tox oid, preservative free, adsorbed 09/09/1996 Family History Medical History Relation Name Comments No Known Problems Brother HTN Relation Name Status Comments Brother Social History Tobacco Use Types Packs/Day Years Used Date Smoking Tobacco: Never Smokeless Tobacco: Never Alcohol Use Standard Drinks/Week Comments Yes 1 (1 standard drink = 0.6 oz pur e alcohol) PHQ-2 Answer Date Recorded Patient Health Questionnaire-2 Score 0 12/17/2020 Comments Unknown Sex and Gender Information Value Date Recorded Sex Assigned at Not on file Legal Sex Female 7:41 PM EDT Gender Identity Not on file Sexual Orientation Not on file Last Filed Vital Signs Vital Sign Reading Time Taken Comments Blood Pressure 120/84 12/17/2020 9:10 AM EDT Pulse 72 12/17/2020 9:10 AM EDT Temperature 36.7 C (98 F) 12/17/2020 9:10 AM EDT Respiratory Rate - - Oxygen Saturation 98% 12/17/2020 9:10 AM EDT Inhaled Oxygen Concentration - - Weight 89.9 kg (198 lb 3.1 oz) 12/17/2020 9:10 A M EDT Height 162.6 cm (5' 4 ) 12/17/2020 9:10 AM EDT Body Mass Index 34.02 12/17/2020 9:10 AM EDT Plan of Treatment Health Maintenance Due Date Last Done Comments [facility]-Depression Screening 1975 [facility]-Infant/Child/Adol SDOH Screenings 1975 [facility]- SDOH Screenings 1993 [facility]-Adult SDOH Screenings 1993 [facility]-Hepatitis B Vaccines (1 of 3 - 19+ 3-dose series) 1994 [facility]-Pap Smear 1996 [facility]-DTaP,Tdap,and Td Vaccine s (1 - Tdap) 09/10/1996 09/09/1996 [facility]-Cervical Cancer Screening 2005 [facility]-HPV/Cotest 2005 CT Colonography 2020 Colonoscopy 2020 FIT-DNA 2020 FIT 2020 FOBT 2020 Sigmoidoscopy 2020 [facility]-Colorectal Cancer Screening 2020 [id number] Vaccine (1 - 20 24-25 season) 2024 [facility]-Zoster Vaccines (1 of 2) 2025 [facility]-Influenza Vaccine (#1) 2025 HPV Vaccines Aged Out No longer eligi ble based on patient's age to complete this topic [facility]-HIB Vaccines Aged Out No longer e ligible based on patient's age to complete this topic [facility]-Hepatitis A Vaccines Aged Out No longer eligible based on patient's age to complete this topic [facility]-IPV Vaccines Aged Out No longer e ligible based on patient's age to complete this topic [facility]-Pneumococcal Vaccine: Pediatrics (0 to 5 Years) and At-Risk Patients (6 to 49 Years) Aged Out No long er eligible based on patient's age to complete this topic [facility]-Rotavirus Vaccines Aged Out No lo nger eligible based on patient's age to complete this topic Insurance [employer]
== END 2025-02-04 23:59 | disposition home or self-care (01) ==
LOC: LAB.DROPOF 16:46
PROVIDERS: PCP Nurse Practitioner Obstetrics & Gynecology; Visit Provider Nurse Practitioner Obstetrics & Gynecology
DX: N89.8 Other specified noninflammatory disorders of vagina (principal)
CPT/HCPCS: 87070; 87205